=== PATIENT | male | born 1970 | race American Indian/Alaskan Native ===

== ENCOUNTER 2017-02-24 13:25 | Emergency (ER) | payer OTHER ==
[2017-02-24 14:07] LABS: Basophils % (Auto) 0.9 % (0.0-1.8); Eosinophils % (Auto) 1.5 % (0.0-4.3); Hematocrit 42.7 % (35.5-45.6); Hemoglobin 13.7 gm/dl (11.8-15.2); Mean Corpuscular HGB Conc 32 % (32-34); Mean Corpuscular Volume 78 fl (84-94); Platelet Count 228 K/mm3 (140-440); Red Blood Count 5.46 M/mm3 (3.65-5.03); Red Cell Distribution Width 14.3 % (13.2-15.2); White Blood Count 3.3 K/mm3 (4.5-11.0)
[2017-02-24 14:10] LABS: Mean Corpuscular Hemoglobin 25 pg (28-32)
[2017-02-24 14:31] LABS: Anion Gap 18 mmol/L; BUN/Creatinine Ratio 12.22; Blood Urea Nitrogen 11 mg/dL (9-20); Calcium 9.2 mg/dL (8.4-10.2); Carbon Dioxide 25 mmol/L (22-30); Chloride 104.3 mmol/L (98-107); Glucose 121 mg/dL (75-100); Potassium 3.8 mmol/L (3.6-5.0); Sodium 143 mmol/L (137-145)
[2017-02-24] MEDS ORDERED: NACL 0.9% 1000 ML 1,000 ML IV ONE (17:42)
[2017-02-24] MEDS ORDERED: ZOFRAN IV ONE (17:42)
--- NOTE | 2017-02-24 17:48 | Emergency Department Report ---
ED General Adult HPI - General Chief complaint: Chest Pain Stated complaint: LOW BP Time Seen by Provider: 02/24/17 15:57 Source: patient Mode of arrival: Ambulatory Limitations: No Limitations - History of Present Illness Initial comments: Patient is a 46-year-old male with no significant past medical history who presents with nausea, malaise and chest pain. Patient states that the symptoms have been going on intermittently for the last day. This is the chest pain is located in his epigastrium is an burning type of pain it doesn't radiate and nothing makes them feel better worse. Patient states that he is nauseous but he hasn't vomited. He came to the emergency department when he took his blood pressure at [facility] and was 119/60. He states that his blood pressure is usually in the 130s so he was concerned and decided to come to the emergency department. Patient denies having any epigastric pain at this time only fill slightly nauseous and he is hungry. Severity scale (0 -10): 8 - Related Data Previous Rx's Medication Instructions Recorded Last Taken Type Ondansetron [Zofran TAB] 4 mg PO Q8HR PRN #15 tablet 02/24/17 Unknown Rx Allergies Allergy/AdvReac Type Severity Reaction Status Date / Time No Known Allergies Allergy Unverified 04/05/13 15:22 ED Review of Systems ROS: Stated complaint: LOW BP Other details as noted in HPI Constitutional: denies: chills, fever Eyes: denies: eye pain, eye discharge, vision change ENT: denies: ear pain, throat pain Respiratory: denies: cough, shortness of breath, wheezing Cardiovascular: denies: chest pain, palpitations Endocrine: no symptoms reported Gastrointestinal: abdominal pain (epigastric pain ), nausea. denies: diarrhea Genitourinary: denies: urgency, dysuria Musculoskeletal: denies: back pain, joint swelling, arthralgia Skin: denies: rash, lesions Neurological: denies: headache, weakness, paresthesias Psychiatric: denies: anxiety, depression Hematological/Lymphatic: denies: easy bleeding, easy bruising ED Past Medical Hx - Past Medical History Previous Medical History?: No - Surgical History Additional Surgical History: cardiac cath - Social History Smoking Status: Never Smoker - Medications Home Medications: Home Medications Medication Instructions Recorded Confirmed Last Taken Type Ondansetron [Zofran TAB] 4 mg PO Q8HR PRN #15 tablet 02/24/17 Unknown Rx ED Physical Exam - General Limitations: No Limitations General appearance: alert, in no apparent distress - Head Head exam: Present: atraumatic, normocephalic - Eye Eye exam: Present: normal appearance - ENT ENT exam: Present: mucous membranes moist - Neck Neck exam: Present: normal inspection - Respiratory Respiratory exam: Present: normal lung sounds bilaterally. Absent: respiratory distress - Cardiovascular Cardiovascular Exam: Present: regular rate, normal rhythm. Absent: systolic murmur, diastolic murmur, rubs, gallop - GI/Abdominal GI/Abdominal exam: Present: soft, normal bowel sounds - Rectal Rectal exam: Present: deferred - Extremities Exam Extremities exam: Present: normal inspection - Back Exam Back exam: Present: normal inspection - Neurological Exam Neurological exam: Present: alert, oriented X3 - Psychiatric Psychiatric exam: Present: normal affect, normal mood - Skin Skin exam: Present: warm, dry, intact, normal color. Absent: rash ED Course Vital Signs 02/24/17 02/24/17 02/24/17 13:36 14:12 14:20 Temperature 98.5 F Pulse Rate 83 80 87 Respiratory 18 23 26 H Rate Blood Pressure 129/69 Blood Pressure [Right] O2 Sat by Pulse 100 97 99 Oximetry 02/24/17 02/24/17 02/24/17 14:30 14:40 14:50 Temperature Pulse Rate 78 79 Respiratory 23 19 18 Rate Blood Pressure 111/69 111/69 Blood Pressure [Right] O2 Sat by Pulse 97 99 99 Oximetry 02/24/17 02/24/17 02/24/17 14:55 15:00 16:00 Temperature 98.6 F Pulse Rate 88 84 77 Respiratory 18 22 20 Rate Blood Pressure 103/60 118/68 Blood Pressure 117/61 [Right] O2 Sat by Pulse 99 99 98 Oximetry 02/24/17 02/24/17 17:00 18:00 Temperature Pulse Rate 77 68 Respiratory 22 21 Rate Blood Pressure 109/61 109/68 Blood Pressure [Right] O2 Sat by Pulse 100 Oximetry - Reevaluation(s) Reevaluation #1: 02/24/17 17:45 Patient states that he is feeling hungry and will give patient by mouth trial and give patient IV fluid bolus. Reevaluation #2: 02/24/17 19:13 Patient has IV fluids going he states he feels better I will send patient home with Zofran prescription ED Medical Decision Making - Lab Data Result diagrams: 02/24/17 13:52 02/24/17 13:52 Lab Results 02/24/17 02/24/17 02/24/17 Range/Units 13:52 13:52 16:48 WBC 3.3 L (4.5-11.0) K/mm3 RBC 5.46 H (3.65-5.03) M/mm3 Hgb 13.7 (11.8-15.2) gm/dl Hct 42.7 (35.5-45.6) % MCV 78 L (84-94) fl MCH 25 L (28-32) pg MCHC 32 (32-34) % RDW 14.3 (13.2-15.2) % Plt Count 228 (140-440) K/mm3 Lymph % (Auto) 40.5 H (13.4-35.0) % Wayne % (Auto) 11.5 H (0.0-7.3) % Eos % (Auto) 1.5 (0.0-4.3) % Baso % (Auto) 0.9 (0.0-1.8) % Lymph # 1.3 (1.2-5.4) K/mm3 Wayne # 0.4 (0.0-0.8) K/mm3 Eos # 0.0 (0.0-0.4) K/mm3 Baso # 0.0 (0.0-0.1) K/mm3 Seg Neutrophils % 45.6 (40.0-70.0) % Seg Neutrophils # 1.5 L (1.8-7.7) K/mm3 Sodium 143 (137-145) mmol/L Potassium 3.8 (3.6-5.0) mmol/L Chloride 104.3 (98-107) mmol/L Carbon Dioxide 25 (22-30) mmol/L Anion Gap 18 mmol/L BUN 11 (9-20) mg/dL Creatinine 0.9 (0.8-1.5) mg/dL Estimated GFR > 60 ml/min BUN/Creatinine Ratio 12.22 % Glucose 121 H (75-100) mg/dL Calcium 9.2 (8.4-10.2) mg/dL Troponin T < 0.010 < 0.010 (0.00-0.029) ng/mL - EKG Data -: EKG Interpreted by Me - EKG Data 02/24/17 17:46 EKG shows normal sinus rhythm with non-specific T wave abnormality. - Medical Decision Making Chief medical diagnosis dehydration Differential diagnosis: GERD, hyponatremia, hypokalemia, non-STEM I will obtain CBC, CMP, troponin, IV antiemetics, IV fluids and will give patient po trial. Patient is feeling better after IV antiemetics and IV fluids. Patient most likely had an upset stomach or GERD. Patient's EKG and troponins are negative unlikely non-STEMI. Patient's chemistry is within normal limits so he does not have a metabolic abnormality. Critical care attestation.: If time is entered above; I have spent that time in minutes in the direct care of this critically ill patient, excluding procedure time. ED Disposition Clinical Impression: Epigastric pain, Nausea Disposition: DC-01 TO HOME OR SELFCARE Is pt being admited?: No Does the pt Need Aspirin: No Condition: Stable Instructions: Acute Nausea and Vomiting (ED) Prescriptions: Ondansetron [Zofran TAB] 4 mg PO Q8HR PRN #15 tablet PRN Reason: Nausea Referrals: PRIMARY CARE, [Primary Care Provider] - 3-5 Days Time of Disposition: 19:15
[2017-02-24 18:16] VITALS: BP 109/68
== END 2017-02-24 19:35 | disposition home or self-care (01) ==
LOC: ED 13:25
DX: R10.13 Epigastric pain (principal); R11.0 Nausea
CPT/HCPCS: 36415; 80048; 84484; 85025; 93005; 93010; 96361; 96374; 99284; J2405; J7030

== ENCOUNTER 2017-08-23 18:21 | Emergency (ER) | payer OTHER ==
[2017-08-23] MEDS ORDERED: TYLENOL PO ONE (18:28)
[2017-08-23] MEDS ORDERED: TYLENOL ONE (18:30)
[2017-08-23] MEDS ORDERED: TORADOL IM ONE (18:47)
--- NOTE | 2017-08-23 18:47 | Emergency Department Report ---
Blank Doc - Documentation Documentation: Patient is a 47-year-old [place] male whose presenting with cough cold congestion and body aches for the past 6 days. Patient states he has pain with his cough coughing productive of clear sputum. Patient is febrile Patient will have a rapid strep performed secondary to sore throat and pharyngeal erythema as well as a chest x-ray to rule out atypical pneumonia
--- NOTE | 2017-08-23 19:37 | XRay Report ---
FINAL REPORT PROCEDURE: XR CHEST ROUTINE 2V TECHNIQUE: PA and lateral chest radiographs were obtained. CPT 90477 HISTORY: cough COMPARISON: No prior studies are available for comparison. FINDINGS: Heart: Normal. Mediastinum/Vessels: Normal. Lungs/Pleural space: No infiltrate, effusion, or pneumothorax. Bony thorax: No acute osseous abnormality. Other: IMPRESSION: No pulmonary infiltrate is identified.
[2017-08-23] MEDS ORDERED: TESSALON PERLES PO ONE (19:59)
--- NOTE | 2017-08-23 21:28 | Emergency Department Report ---
- General Chief Complaint: Upper Respiratory Infection Stated Complaint: C/P Time Seen by Provider: 08/23/17 18:40 Source: patient, family Mode of arrival: Ambulatory Limitations: No Limitations - History of Present Illness Initial Comments: This is a 47-year-old male nontoxic, well nourished in appearance, no acute signs of distress presents to the ED with c/o of productive cough, fever, chills , body aches, rhinorrhea, nasal congestion x1 week. Patient describes productive cough as yellow mucus production. Patient denies sick contacts. Patient denies any recent travels, long car, recent hospital stays. Patient denies any calf pain or calf tenderness. Patient denies any chest pain, short of breath, fever, chills, nausea, vomiting, hemoptysis, numbness, tingling, headache or stiff neck. Patient denies any allergies or significant PMH. MD Complaint: fever, cough, rhinorrhea, nasal congestion -: week(s) (1) Severity: mild Severity scale (0 -10): 8 Quality: aching Consistency: constant Improves With: nothing Worsens With: nothing Associated Symptoms: fever, chills, rhinorrhea, nasal congestion, cough. denies : myalgias, diaphoresis, headache, sore throat, stiff neck, chest pain, shortness of breath, abdominal pain, nausea, vomiting, diarrhea, dysuria, rash, confusion, right sweats, weight loss, epistaxis, hoarseness, ear pain Treatments Prior to Arrival: none - Related Data Previous Rx's Medication Instructions Recorded Last Taken Type Ondansetron [Zofran TAB] 4 mg PO Q8HR PRN #15 tablet 02/24/17 Unknown Rx Azithromycin [Zithromax Z-KAMRYN] 250 mg PO DAILY #6 tablet 08/23/17 Unknown Rx Benzonatate [Tessalon Perle] 100 mg PO Q6H PRN #20 capsule 08/23/17 Unknown Rx Ibuprofen [Motrin] 600 mg PO Q8H PRN #30 tablet 08/23/17 Unknown Rx Allergies Allergy/AdvReac Type Severity Reaction Status Date / Time No Known Allergies Allergy Verified 08/23/17 18:24 ED Review of Systems ROS: Stated complaint: C/P Other details as noted in HPI Constitutional: chills, fever Eyes: denies: eye pain, eye discharge, vision change ENT: denies: ear pain, throat pain Respiratory: cough. denies: shortness of breath, wheezing Cardiovascular: denies: chest pain, palpitations Endocrine: no symptoms reported Gastrointestinal: denies: abdominal pain, nausea, diarrhea Genitourinary: denies: urgency, dysuria Musculoskeletal: denies: back pain, joint swelling, arthralgia Skin: denies: rash, lesions Neurological: denies: headache, weakness, paresthesias Psychiatric: denies: anxiety, depression Hematological/Lymphatic: denies: easy bleeding, easy bruising ED Past Medical Hx - Past Medical History Previous Medical History?: Yes - Surgical History Past Surgical History?: No Additional Surgical History: cardiac cath - Social History Smoking Status: Never Smoker Substance Use Type: None - Medications Home Medications: Home Medications Medication Instructions Recorded Confirmed Last Taken Type Ondansetron [Zofran TAB] 4 mg PO Q8HR PRN #15 tablet 02/24/17 Unknown Rx Azithromycin [Zithromax Z-KAMRYN] 250 mg PO DAILY #6 tablet 08/23/17 Unknown Rx Benzonatate [Tessalon Perle] 100 mg PO Q6H PRN #20 capsule 08/23/17 Unknown Rx Ibuprofen [Motrin] 600 mg PO Q8H PRN #30 tablet 08/23/17 Unknown Rx ED Physical Exam - General Limitations: No Limitations General appearance: alert, in no apparent distress - Head Head exam: Present: atraumatic, normocephalic - Eye Eye exam: Present: normal appearance, PERRL, EOMI Pupils: Present: normal accommodation - ENT ENT exam: Present: normal exam, normal orophraynx, mucous membranes moist, TM's normal bilaterally, normal external ear exam - Neck Neck exam: Present: normal inspection, full ROM. Absent: tenderness, meningismus, lymphadenopathy, thyromegaly - Respiratory Respiratory exam: Present: normal lung sounds bilaterally. Absent: respiratory distress, wheezes, rales, rhonchi, stridor, chest wall tenderness, accessory muscle use, decreased breath sounds, prolonged expiratory - Cardiovascular Cardiovascular Exam: Present: regular rate, normal rhythm, normal heart sounds. Absent: irregular rhythm, systolic murmur, diastolic murmur, rubs, gallop - GI/Abdominal GI/Abdominal exam: Present: soft, normal bowel sounds. Absent: distended, tenderness, guarding, rebound, rigid, diminished bowel sounds - Rectal Rectal exam: Present: deferred - Extremities Exam Extremities exam: Present: normal inspection, full ROM, normal capillary refill. Absent: tenderness, pedal edema, joint swelling, calf tenderness - Back Exam Back exam: Present: normal inspection, full ROM. Absent: tenderness, CVA tenderness (R), CVA tenderness (L), muscle spasm, paraspinal tenderness, vertebral tenderness, rash noted - Neurological Exam Neurological exam: Present: alert, oriented X3, CN II-XII intact, normal gait, reflexes normal - Psychiatric Psychiatric exam: Present: normal affect, normal mood - Skin Skin exam: Present: warm, dry, intact, normal color. Absent: rash ED Course Vital Signs 08/23/17 08/23/17 18:24 19:12 Temperature 101.8 F H Pulse Rate 100 H Respiratory 16 16 Rate Blood Pressure 140/99 O2 Sat by Pulse 97 Oximetry - Reevaluation(s) Reevaluation #1: 08/23/17 21:26 Patient is speaking in full sentences with no signs of distress noted. ED Medical Decision Making - Medical Decision Making This is a 47-year-old male that presents with upper respiratory infection and possbile influenza. Patient is stable and was examined by me and Dr. Grewal. Chest x-ray has been obtained and dictated by radiologist with normal exam. Patient is notified of x-ray results with no questions noted. Due to patient having symptoms of upper respiratory infection and worsening I will treat patient empirically with zpak. Patient is above >72 hour window for tamiflu. Patient was instructed to increase hydration, rest and take Motrin for fever episodes. Patient received Toradol, Tylenol, and tesslone perrls in the ED. Vitals stable. Patient is nonfebrile and normal heart rate. Patient was orally hydrated and patient tolerated well known nausea or vomiting. Patient was instructed Follow-up with a primary care doctor in 3-5 days or if symptoms worsen and continue return to emergency room as soon as possible. At time time of discharge, the patient does not seem toxic or ill in appearance. No acute signs of distress noted. Patient agrees to discharge treatment plan of care. No further questions noted by the patient. Critical care attestation.: If time is entered above; I have spent that time in minutes in the direct care of this critically ill patient, excluding procedure time. ED Disposition Clinical Impression: Upper respiratory infection Qualifiers: URI type: unspecified URI Qualified Code(s): J06.9 - Acute upper respiratory infection, unspecified Disposition: - TO HOME OR SELFCARE Is pt being admited?: No Does the pt Need Aspirin: No Condition: Stable Instructions: Upper Respiratory Infection (ED), Azithromycin (By mouth), Benzonatate (By mouth), Influenza (ED), Ibuprofen (By mouth), Fever in Adults ( ED) Additional Instructions: Follow-up with a primary care doctor in 3-5 days or if symptoms worsen and continue return to emergency room as soon as possible. Increase rest, hydration and take Motrin for fever episodes. Prescriptions: Azithromycin [Zithromax Z-KAMRYN] 250 mg PO DAILY #6 tablet Benzonatate [Tessalon Perle] 100 mg PO Q6H PRN #20 capsule PRN Reason: Cough Ibuprofen [Motrin] 600 mg PO Q8H PRN #30 tablet PRN Reason: Fever Referrals: PRIMARY CAREMD [Primary Care Provider] - 3-5 Days RUTH KINCAID MD [Staff Physician] - 3-5 Days [facility] [Outside] - 3-5 Days [facility] [Outside] - 3-5 Days Forms: Work/School Release Form(ED)
[2017-08-23 21:36] VITALS: BP 124/75
== END 2017-08-23 21:43 | disposition home or self-care (01) ==
LOC: ED 18:21
DX: J06.9 Acute upper respiratory infection, unspecified (principal)
CPT/HCPCS: 71046; 87430; 96372; 99284; J1885

== ENCOUNTER 2018-01-08 11:22 | Emergency (ER) | payer OTHER, BC ==
[2018-01-08 11:41] VITALS: BP 144/87
[2018-01-08 13:55] LABS: Bilirubin,Urine NEG (Negative); Blood,Urine NEG (Negative); Color,Urine Yellow (Yellow); Protein,Urine <15 mg/dL mg/dL (Negative); Urobilinogen,Urine < 2.0 mg/dL (<2.0); WBC,Urine < 1.0 /HPF (0.0-6.0)
--- NOTE | 2018-01-08 14:04 | Emergency Department Report ---
ED General Adult HPI - General Chief complaint: Extremity Problem,Nontraumatic Stated complaint: FREQ URINATION/DRY MOUTH Time Seen by Provider: 01/08/18 12:28 Source: patient, family Mode of arrival: Ambulatory Limitations: No Limitations - History of Present Illness Initial comments: This is a 47-year-old male here report that he's been having increased urination , dry mouth and he has chronic knee pain. He said he did not continue to get his KNEES checked he is just worried about having diabetes and he wants his blood sugar checked. Patient said that he has diabetes that runs in his family and he is worried about having diabetes. Denies any weight loss or gain. Denies any increase in appetite. Denies any urinary burning or urgency. Denies any abdominal or back pain. Pain at present is 0-10. Denies any nausea or vomiting. Denies any numbness or tingling to extremities. He said his primary care is Dr. Kincaid and he has an appointment to see him in 1 months to get his yearly physical. He said he had his prostate checked last year and also PSA level done and it was fine. MD Complaint: INCREASE URINATION AND DRY MOUTH, CHRONIC KNEE PAIN Onset/Timin -: week(s) Location: lower extremity Radiation: extremity Quality: aching Consistency: intermittent Associated Symptoms: other (increased urination and dry mouth). denies: confusion, chest pain, cough, diaphoresis, fever/chills, headaches, loss of appetite, malaise, nausea/vomiting, rash, seizure, shortness of breath, syncope , weakness Treatments Prior to Arrival: none - Related Data Previous Rx's Medication Instructions Recorded Last Taken Type Ondansetron [Zofran TAB] 4 mg PO Q8HR PRN #15 tablet 02/24/17 Unknown Rx Azithromycin [Zithromax Z-KAMRYN] 250 mg PO DAILY #6 tablet 08/23/17 Unknown Rx Benzonatate [Tessalon Perle] 100 mg PO Q6H PRN #20 capsule 08/23/17 Unknown Rx Ibuprofen [Motrin] 600 mg PO Q8H PRN #30 tablet 08/23/17 Unknown Rx Allergies Allergy/AdvReac Type Severity Reaction Status Date / Time No Known Allergies Allergy Verified 08/23/17 18:24 ED Review of Systems ROS: Stated complaint: FREQ URINATION/DRY MOUTH Other details as noted in HPI Constitutional: denies: chills, fever Eyes: denies: vision change ENT: other (dry mouth). denies: ear pain, throat pain, dental pain, hearing loss, epistaxis, congestion Respiratory: denies: cough, shortness of breath, SOB with exertion, SOB at rest , stridor, wheezing Cardiovascular: denies: chest pain, palpitations, edema, syncope Gastrointestinal: denies: abdominal pain, nausea, vomiting, diarrhea Genitourinary: frequency. denies: urgency, dysuria, hematuria, discharge, testicular pain, testicular mass Musculoskeletal: joint swelling (both knees), arthralgia. 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) - Surgical History Past Surgical History?: Yes Additional Surgical History: cardiac cath - Family History Family history: diabetes, hypertension - Social History Smoking Status: Never Smoker Substance Use Type: Alcohol - Medications Home Medications: Home Medications Medication Instructions Recorded Confirmed Last Taken Type Ondansetron [Zofran TAB] 4 mg PO Q8HR PRN #15 tablet 02/24/17 Unknown Rx Azithromycin [Zithromax Z-KAMRYN] 250 mg PO DAILY #6 tablet 08/23/17 Unknown Rx Benzonatate [Tessalon Perle] 100 mg PO Q6H PRN #20 capsule 08/23/17 Unknown Rx Ibuprofen [Motrin] 600 mg PO Q8H PRN #30 tablet 08/23/17 Unknown Rx ED Physical Exam - General Limitations: No Limitations General appearance: alert, in no apparent distress - Head Head exam: Present: atraumatic, normocephalic, normal inspection - Eye Eye exam: Present: normal appearance, PERRL, EOMI. Absent: periorbital swelling , periorbital tenderness Pupils: Present: normal accommodation - ENT ENT exam: Present: normal exam, normal orophraynx, mucous membranes moist, TM's normal bilaterally, normal external ear exam - Neck Neck exam: Present: normal inspection, full ROM. Absent: tenderness, lymphadenopathy - Respiratory Respiratory exam: Present: normal lung sounds bilaterally. Absent: respiratory distress, chest wall tenderness - Cardiovascular Cardiovascular Exam: Present: regular rate, normal rhythm, normal heart sounds. Absent: systolic murmur, diastolic murmur - GI/Abdominal GI/Abdominal exam: Present: soft, normal bowel sounds. Absent: distended, tenderness, guarding, rebound, rigid, organomegaly, mass, bruit - Extremities Exam Extremities exam: Present: normal inspection, full ROM, normal capillary refill , other (no clubbing, cyanosis or edema. +2 pulses to all extremities and no neurovascular compromise. No joint effusion. No joint swelling or deformity. No joint erythema and patient able to flex and extend both his knees without any difficulties.). Absent: tenderness, pedal edema, joint swelling, calf tenderness - Back Exam Back exam: Present: normal inspection, full ROM, other (ambulate without any difficulties) - Neurological Exam Neurological exam: Present: alert, oriented X3, normal gait, motor sensory deficit. Absent: reflexes normal - Psychiatric Psychiatric exam: Present: normal affect, normal mood - Skin Skin exam: Present: warm, dry, intact, normal color. Absent: rash ED Course Vital Signs 01/08/18 11:34 Temperature 98.4 F Pulse Rate 82 Respiratory 20 Rate Blood Pressure 144/87 O2 Sat by Pulse 100 Oximetry - Reevaluation(s) Reevaluation #1: 01/08/18 14:43 Patient is stable in no distress than [facility] pain medicine. He had his blood sugar checked and blood sugar is at 78 ED Medical Decision Making - Lab Data Lab Results 01/08/18 01/08/18 Range/Units 11:35 13:48 POC Glucose 78 (70-105) Urine Color Yellow (Yellow) Urine Turbidity Clear (Clear) Urine pH 5.0 (5.0-7.0) Ur Specific [place] 1.014 (1.003-1.030) Urine Protein <15 mg/dl (Negative) mg/dL Urine Glucose (UA) Neg (Negative) mg/dL Urine Ketones Neg (Negative) mg/dL Urine Blood Neg (Negative) Urine Nitrite Neg (Negative) Urine Bilirubin Neg (Negative) Urine Urobilinogen < 2.0 (<2.0) mg/dL Ur Leukocyte Esterase Neg (Negative) Urine WBC (Auto) < 1.0 (0.0-6.0) /HPF Urine RBC (Auto) 1.0 (0.0-6.0) /HPF POC blood sugar is 78 - Medical Decision Making ED course: This is a 47-year-old male here to get a blood sugar check. He is having frequency in urination and dry mouth and worried about diabetes because of this family. He is not having any problems in urination except for urinary frequency. He reported that he was having knee problems but reported that he didn't come here for that to this pain is chronic and he has it from time to time. I saw and examined patient and she was found to have normal exam. Blood glucose is at 78 and his urinalysis is normal. This is discussed with the patient and he voiced understanding the diagnosis. A/P 1: Dry mouth-patient oral mucosa is moist. Specific gravity is normal and urine is not concentrated 2: Urinary frequency-urinalysis is normal 3: Right bilateral knee pain-knee exam is normal and patient will be referred to orthopedic Education given to follow-up with his primary care doctor to continue to have yearly prostate check. I discussed with him that his urinalysis and blood glucose was normal but when he goes to his doctor he needs to be fast and so he can have fasting blood level done. He voiced understanding Patient discharged home in stable condition. Vital signs are stable afebrile. Patient scheduled to have physical exam in one month with his primary care doctor. I also discussed with him that I referred him to orthopedic doctor for his chronic knee pain with normal exam. - Differential Diagnosis diabetes, UTI, prostatitis, Critical care attestation.: If time is entered above; I have spent that time in minutes in the direct care of this critically ill patient, excluding procedure time. ED Disposition Clinical Impression: Urinary frequency Knee pain, bilateral Qualifiers: Chronicity: chronic Qualified Code(s): M25.561 - Pain in right knee; M25.562 - Pain in left knee; G89.29 - Other chronic pain Disposition: DC-01 TO HOME OR SELFCARE Is pt being admited?: No Does the pt Need Aspirin: No Condition: Stable Instructions: Knee Pain (ED), Knee Exercises (GEN) Additional Instructions: have urinary frequency and year urine test and blood glucose was normal. These keep ear appointment with your primary care physician in one month for yearly physical See referral to orthopedic doctor for chronic knee pain If your condition worsens, return to the emergency room Referrals: RUTH KINCAID MD [Primary Care Provider] - 2-3 Days OZIEL MCKOY MD [Staff Physician] - 2-3 Days Forms: Work/School Release Form(ED)
== END 2018-01-08 15:06 | disposition home or self-care (01) ==
LOC: ED 11:22
DX: R35.0 Frequency of micturition (principal); M25.562 Pain in left knee; G89.29 Other chronic pain; J45.909 Unspecified asthma, uncomplicated
CPT/HCPCS: 81001; 82962; 87086; 99283

== ENCOUNTER 2019-04-19 02:35 | Emergency (ER) | payer BC, OTHER ==
[2019-04-19 02:45] VITALS: BP 136/93
[2019-04-19] MEDS ORDERED: traMADol 50 MG TAB PO ONE (03:29)
--- NOTE | 2019-04-19 03:32 | Emergency Department Report ---
ED Lower Extremity HPI - General Chief Complaint: Extremity Injury, Lower Stated Complaint: FOOT INJURY Time Seen by Provider: 04/19/19 03:25 Source: patient Mode of arrival: Ambulatory Limitations: No Limitations - History of Present Illness Initial Comments: Patient is a 48-year-old -[place] male who presents for right lateral foot pain denies fall injury or trauma states that she started having 2 hours ago there is no numbness no tingling symptoms exacerbated by weightbearing symptoms relieved by off loading and rest. Minimal swelling and no deformity no erythema joint is not hot to touch range of motion is intact MD Complaint: foot injury Onset/Timin -: hour(s) Injury: Foot: Right Type of Injury: unknown Place: home Severity: moderate Severity scale (0 -10): 5 Improves With: rest Worsens With: weight bearing, movement, palpation Associated Symptoms: swelling, able to partially bear weight. denies: snap/pop sensation, numbness, tingling - Related Data Previous Rx's Medication Instructions Recorded Last Taken Type Ondansetron [Zofran TAB] 4 mg PO Q8HR PRN #15 tablet 02/24/17 Unknown Rx Azithromycin [Zithromax Z-KAMRYN] 250 mg PO DAILY #6 tablet 08/23/17 Unknown Rx Benzonatate [Tessalon Perle] 100 mg PO Q6H PRN #20 capsule 08/23/17 Unknown Rx Ibuprofen [Motrin] 600 mg PO Q8H PRN #30 tablet 08/23/17 Unknown Rx Cyclobenzaprine [Flexeril] 10 mg PO TID PRN #30 tablet 04/19/19 Unknown Rx Naproxen 500 mg PO BID PRN #30 tablet 04/19/19 Unknown Rx predniSONE [Deltasone] 40 mg PO QDAY 5 Days #10 tab 04/19/19 Unknown Rx Allergies Allergy/AdvReac Type Severity Reaction Status Date / Time No Known Allergies Allergy Verified 08/23/17 18:24 ED Review of Systems ROS: Stated complaint: FOOT INJURY Other details as noted in HPI Constitutional: denies: chills, fever Eyes: denies: eye pain, eye discharge, vision change ENT: denies: ear pain, throat pain Respiratory: denies: cough, shortness of breath, wheezing Cardiovascular: denies: chest pain, palpitations Endocrine: no symptoms reported Gastrointestinal: denies: abdominal pain, nausea, diarrhea Genitourinary: denies: urgency, dysuria Musculoskeletal: other (foot pain ). 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) - Surgical History Past Surgical History?: Yes Additional Surgical History: cardiac cath, right hand - Social History Smoking Status: Never Smoker Substance Use Type: None - Medications Home Medications: Home Medications Medication Instructions Recorded Confirmed Last Taken Type Ondansetron [Zofran TAB] 4 mg PO Q8HR PRN #15 tablet 02/24/17 Unknown Rx Azithromycin [Zithromax Z-KAMRYN] 250 mg PO DAILY #6 tablet 08/23/17 Unknown Rx Benzonatate [Tessalon Perle] 100 mg PO Q6H PRN #20 capsule 08/23/17 Unknown Rx Ibuprofen [Motrin] 600 mg PO Q8H PRN #30 tablet 08/23/17 Unknown Rx Cyclobenzaprine [Flexeril] 10 mg PO TID PRN #30 tablet 04/19/19 Unknown Rx Naproxen 500 mg PO BID PRN #30 tablet 04/19/19 Unknown Rx predniSONE [Deltasone] 40 mg PO QDAY 5 Days #10 tab 04/19/19 Unknown Rx ED Physical Exam - General Limitations: No Limitations General appearance: alert, in no apparent distress - Head Head exam: Present: atraumatic, normocephalic. Absent: normal inspection - Eye Eye exam: Present: normal appearance, PERRL, EOMI Pupils: Present: normal accommodation - ENT ENT exam: Present: mucous membranes moist - Neck Neck exam: Present: normal inspection, full ROM. Absent: tenderness, meningismus, lymphadenopathy, thyromegaly - Respiratory Respiratory exam: Present: normal lung sounds bilaterally. Absent: respiratory distress, wheezes, stridor, chest wall tenderness - Cardiovascular Cardiovascular Exam: Present: regular rate, normal rhythm, normal heart sounds. Absent: systolic murmur, diastolic murmur, rubs, gallop - GI/Abdominal GI/Abdominal exam: Present: soft, normal bowel sounds. Absent: distended, tenderness, bruit, hernia - Rectal Rectal exam: Present: deferred - Extremities Exam Extremities exam: Present: normal inspection, full ROM, normal capillary refill, joint swelling (mild right lateral foot ankle swelling ). Absent: tenderness, pedal edema, calf tenderness - Back Exam Back exam: Present: normal inspection, full ROM, muscle spasm. Absent: CVA tenderness (R), CVA tenderness (L), rash noted - Neurological Exam Neurological exam: Present: alert, oriented X3, CN II-XII intact, abnormal gait (partial weight bearing to right foot ankle ), reflexes normal. Absent: motor sensory deficit - Psychiatric Psychiatric exam: Present: normal affect, normal mood - Skin Skin exam: Present: warm, dry, intact, normal color. Absent: rash ED Course Vital Signs 04/19/19 02:42 Temperature 98.5 F Pulse Rate 77 Respiratory 20 Rate Blood Pressure 136/93 O2 Sat by Pulse 98 Oximetry ED Lower Extremity MDM - Radiology Data Radiology results: image reviewed no fracture no soft tissue abnormality - Medical Decision Making xray foot right no fracture no soft tissue abnormality , plan nsaids, prednisone, adriana wrap, crutches pt will follow with pcp/ Ortho in 2-3 days for follow up , pt verbalized agreement and understanding of same. Critical care attestation.: If time is entered above; I have spent that time in minutes in the direct care of this critically ill patient, excluding procedure time. ED Disposition Clinical Impression: Right ankle sprain Qualifiers: Encounter type: initial encounter Involved ligament of ankle: unspecified ligament Qualified Code(s): S93.401A - Sprain of unspecified ligament of right ankle, initial encounter Right foot sprain Qualifiers: Encounter type: initial encounter Qualified Code(s): S93.601A - Unspecified sprain of right foot, initial encounter Disposition: TO HOME OR SELFCARE Is pt being admited?: No Does the pt Need Aspirin: No (the) Condition: Stable Instructions: Foot Sprain (ED), Ankle Exercises (GEN), Ankle Sprain (ED) Prescriptions: predniSONE [Deltasone] 40 mg PO QDAY 5 Days #10 tab Cyclobenzaprine [Flexeril] 10 mg PO TID PRN #30 tablet PRN Reason: Muscle Spasm Naproxen 500 mg PO BID PRN #30 tablet PRN Reason: pain Referrals: OZIEL MCKOY MD [Staff Physician] - 3-5 Days Forms: Work/School Release Form(ED) Time of Disposition: 03:54
--- NOTE | 2019-04-19 04:28 | XRay Report ---
X-RAY RIGHT FOOT 3 VIEWS INDICATION / CLINICAL INFORMATION: right foot pain COMPARISON: None available. FINDINGS: BONES / JOINT(S): No acute fracture or subluxation. No significant arthritis. SOFT TISSUES: No significant abnormality. ADDITIONAL FINDINGS: None. IMPRESSION: 1. No acute displaced fracture or dislocation. Signer Name: Roseline Nair MD Signed: 04/19/2019 4:24 AM Workstation Name: [id number]
== END 2019-04-19 04:15 | disposition home or self-care (01) ==
LOC: ED 02:35
DX: S93.401A Sprain of unspecified ligament of right ankle, initial encounter (principal); J45.909 Unspecified asthma, uncomplicated; X58.XXXA Exposure to other specified factors, initial encounter; Y93.89 Activity, other specified; Y92.89 Other specified places as the place of occurrence of the external cause; Y99.8 Other external cause status

== ENCOUNTER 2021-01-21 11:00 | Outpatient (CLI) | payer BC | END 2021-01-21 11:01 | disposition home or self-care (01) | LOC: SLR 11:00 | PROVIDERS: ATTEND Specialist | DX: G47.33 Obstructive sleep apnea (adult) (pediatric) (principal) | CPT/HCPCS: 95811 ==